=== PATIENT | female | born 1975 | race Caucasian/White ===

== ENCOUNTER 2018-08-25 19:11 | Emergency (ER) | payer OTHER ==
[~2018-08-25] VITALS: Ht 160 cm; Wt 49.9 kg
[~2018-08-25 19:11] MED LIST: PEPCID40 MG PO; PHENERGAN25 MG PO
[2018-08-26] MEDS ORDERED: ZYNCOF 20-400120 ML PO (01:50)
[2018-08-26] MEDS ORDERED: DOLOGESIC 500-1 EACH PO (01:50)
== END 2018-08-26 01:57 | disposition home or self-care (01) ==
LOC: ER 19:11
DX: B34.9 Viral infection, unspecified (principal)

== ENCOUNTER → 2020-01-29 | Outpatient (CLI) | payer OTHER ==
[~2020-01-29] MED LIST changes: +DOLOGESIC 500-1 EACH PO; +ZYNCOF 20-400120 ML PO
== END | disposition home or self-care (01) ==
LOC: OFIC 805 14:45
PROVIDERS: ATTEND Otolaryngology
DX: H66.92 Otitis media, unspecified, left ear (principal); H61.23 Impacted cerumen, bilateral

== ENCOUNTER 2020-02-27 16:39 | Outpatient (CLI) | payer OTHER | END 2020-02-27 17:00 | disposition home or self-care (01) | LOC: OFIC 805 16:39 | PROVIDERS: ATTEND Otolaryngology | DX: H66.92 Otitis media, unspecified, left ear (principal); H61.23 Impacted cerumen, bilateral ==